=== PATIENT | female | born 1970 | race Caucasian/White ===

== ENCOUNTER 2022-01-28 12:38 | Emergency (ER) | payer OTHER ==
[2022-01-28 13:31] VITALS: RESP 18; TEMP 97.9
--- NOTE | 2022-01-28 14:02 | XR ---
EXAMINATION TYPE: XR finger RT DATE OF EXAM: 01/28/2022 COMPARISON: NONE HISTORY: Swelling TECHNIQUE: Three views are submitted. FINDINGS: The osseous structures are intact. The joint spaces are preserved and there is no acute fracture or dislocation. Diffuse soft tissue edema. Tiny density adjacent to the DIP joint along the ulnar surfac e. IMPRESSION: 1. Diffuse soft tissue edema. Correlate for cellulitis. No destructive changes to suggest osteomyelit is. 2. There is a tiny 1 to 2 mm density adjacent to the DIP joint along the palmar surface to small to c haracterize. Tiny foreign body not excluded.
[2022-01-28] MEDS ORDERED: LIDOCAINE 1% INJ 10MG/ML (30 ML VIAL-PF) SQ ONE (15:01)
[2022-01-28] MEDS ORDERED: SULFAMETHOX-TMP 800-160MG 1 EACH TAB PO STA (15:01)
--- NOTE | 2022-01-28 15:07 | ED ---
Skin/Abscess/FB HPI - General Chief complaint: Skin/Abscess/Foreign Body Stated complaint: finger infection Time Seen by Provider: 01/28/22 14:34 Source: patient, RN notes reviewed Mode of arrival: ambulatory Limitations: no limitations - History of Present Illness Initial comments: This is a 52-year-old female who presents to the emergency department for concerns of an infection in her right pinky finger. 3-4 days ago, she got a splinter in the finger and left it alone. She has since had an increase in pain and swelling. She is now starting to have drainage from this area and states that the pain is unbearable. Her tetanus status is up-to-date. Denies any fevers, chills, sore throat, cough, dyspnea, chest pain, palpitations, abdominal pain, nausea, vomiting, diarrhea, back pain, or headaches. MD complaint: abscess/boil - Related Data Home Medications Medication Instructions Recorded Confirmed Ascorbic Acid [Vitamin C] 500 mg PO DAILY 10/08/15 10/08/15 Cyanocobalamin [Vitamin B-12] 500 mcg PO DAILY 10/08/15 10/08/15 Ferrous Sulfate [Feosol] 325 mg PO DAILY 10/08/15 10/08/15 Previous Rx's Medication Instructions Recorded Cephalexin [Keflex] 500 mg PO Q6HR #28 cap 10/08/15 HYDROcodone/APAP 5-325MG [Memphis 1 tab PO Q6HR PRN 3 Days #12 tab 01/28/22 5-325] Sulfamethox-Tmp 800-160Mg [Bactrim 1 tab PO Q12HR 7 Days #14 tab 01/28/22 DS 800-160 mg] Allergies Allergy/AdvReac Type Severity Reaction Status Date / Time No Known Allergies Allergy Verified 01/28/22 13:31 Review of Systems ROS Statement: Those systems with pertinent positive or pertinent negative responses have been documented in the HPI. ROS Other: All systems not noted in ROS Statement are negative. Past Medical History Past Medical History: No Reported History History of Any Multi-Drug Resistant Organisms: None Reported Past Surgical History: No Surgical Hx Reported Past Psychological History: No Psychological Hx Reported Smoking Status: Current every day smoker Past Alcohol Use History: None Reported Past Drug Use History: None Reported General Exam Limitations: no limitations General appearance: alert, in no apparent distress Head exam: Present: atraumatic, normocephalic, normal inspection Respiratory exam: Present: normal lung sounds bilaterally. Absent: respiratory distress, wheezes, rales, rhonchi, stridor Cardiovascular Exam: Present: regular rate, normal rhythm, normal heart sounds. Absent: systolic murmur, diastolic murmur, rubs, gallop, clicks Extremities exam: Present: other (Diffuse soft tissue swelling over the right DIP joint on the pinky finger consistent with an abscess. Visible purulent material.) Neurological exam: Present: alert, oriented X3, CN II-XII intact Psychiatric exam: Present: normal affect, normal mood Course Vital Signs 01/28/22 01/28/22 13:29 17:30 Temperature 97.9 F Pulse Rate 68 72 Respiratory 18 18 Rate Blood Pressure 165/93 158/89 O2 Sat by Pulse 95 98 Oximetry Medical Decision Making - Medical Decision Making This is a 52-year-old female who presents to the emergency department for an abscess to the right pinky finger. X-ray obtained and on my interpretation there is diffuse soft tissue swelling. There was visible purulence underneath the epidermis. I&D was performed and a copious amount of purulent discharge was removed. Patient noted relief in symptoms almost immediately. The splinter she noted did come out of the finger underneath the fingernail. However, her pinky fingernail did start to fall off. A suture was used to tack this down while the new nail grows in. Advised that the suture will need to be removed in 2-3 we eks. Tetanus status is up-to-date. She was given a dose of Bactrim in the emergency department and a prescription for a seven-day course of Bactrim was provided. She was also given a short course of [place] due to the level of pain that she was in secondary to the I&D and removal and subsequent reattachment of the fingernail. Advised that she take this very sparingly when her pain is the most severe and to otherwise alternate with ibuprofen and Tylenol. Recommended alternating with warm and cool compresses as well to help with the swelling and any subsequent purulent material. Return precautions reviewed in depth, the patient is instructed to return to the emergency department with any new, worsening, or concerning symptoms. Patient verbalized understanding. This case was discussed in detail with the attending ED physician. Presentation, findings, and treatment plan discussed in detail as well. - Radiology Data Radiology results: report reviewed, image reviewed Disposition Clinical Impression: Abscess of right little finger Disposition: HOME SELF-CARE Instructions (If sedation given, give patient instructions): Abscess Incision and Drainage (ED), Abscess (ED) Additional Instructions: Return to the emergency department with any new, worsening, or concerning symptoms and in 2-3 weeks to have the stitch removed. Alternate with ibuprofen and Tylenol as needed for pain relief. Take the [place] sparingly when your pain is the most severe, and avoid driving or operating machinery when taking this because it can be sedating. You can also alternate with warm and cool compresses. Follow up with your primary care provider in 1-2 days. Prescriptions: Sulfamethox-Tmp 800-160Mg [Bactrim DS 800-160 mg] 1 tab PO Q12HR 7 Days #14 tab HYDROcodone/APAP 5-325MG [[place] 5-325] 1 tab PO Q6HR PRN 3 Days #12 tab PRN Reason: Pain Is patient prescribed a controlled substance at d/c from ED?: Yes When asked, does pt state using other controlled substances?: No If prescribed controlled substance>3 days was MAPS reviewed?: Prescribed <3 Days Referrals: None,Stated [Primary Care Provider] - 1-2 days
[2022-01-28] MEDS ORDERED: SULFAMETH-TMP DS STARTER PACK 2 TAB BTL PO STA (15:40)
[2022-01-28] MEDS ORDERED: ACET/COD 300 MG/30 MG STARTER PACK 6 TAB BTL PO STA (15:40)
[2022-01-28] MEDS ORDERED: HYDROcodone/APAP 5-325MG 1 EACH TAB PO STA (15:40)
[2022-01-28] MEDS ORDERED: IBUPROFEN 600 MG STARTER PACK 4 TAB BTL PO STA (15:40)
[2022-01-28] MEDS ORDERED: MORPHINE SULFATE 4 MG/ML SYRINGE IM STA (16:35)
[2022-01-28 17:32] VITALS: BP 158/89; PULSE 72
== END 2022-01-28 17:31 | disposition home or self-care (01) ==
LOC: EC 12:38
DX: L02.511 Cutaneous abscess of right hand (principal); F17.200 Nicotine dependence, unspecified, uncomplicated
CPT/HCPCS: 10060; 99283; 96372; 87070; 87205; 87075; 73140; J2270; J2001

== ENCOUNTER 2022-03-30 13:48 | Emergency (ER) | payer OTHER ==
[2022-03-30 14:00] VITALS: BP 165/105; PULSE 75; RESP 22; TEMP 97.9
--- NOTE | 2022-03-30 16:18 | ED ---
General Adult HPI - General Source: patient, RN notes reviewed Mode of arrival: ambulatory Limitations: no limitations <Sonia Amaral - Last Filed: 03/30/22 16:17> <Hari Castro - Last Filed: 03/30/22 23:03> - General Chief complaint: Dental/Oral Stated complaint: dental pain - History of Present Illness Initial comments: 52 year-old female presents to the emergency Department complaining of dental pain that started started on 03/27/2022. Denies trauma. Patient stable, vital signs stable. (Sonia Amaral) Patient is a 52-year-old female presenting with chief complaint of "I think I need antibiotics". Patient states that she has noted "swelling" to the left side of her face since Wednesday. Patient has been unable to move her mouth, completely close her eye, or raise her eyebrows since Wednesday. She has known dental caries on the right side of the face. She denies any pain. No fever or chills. No difficulty breathing or swallowing. No chest pain, palpitations, headache, vision or hearing changes. No recent injury or head trauma, blood thinners, loss of consciousness, seizure-like activity (Hari Castro) - Related Data Home Medications Medication Instructions Recorded Confirmed Ibuprofen [Motrin Ib] 800 mg PO Q8H PRN 03/30/22 03/30/22 Sertraline [Zoloft] 100 mg PO DAILY 03/30/22 03/30/22 Previous Rx's Medication Instructions Recorded Artificial Tears-Hypromellose 1 drops LEFT EYE TID #10 ml 03/30/22 [Artificial Tear Drops] Allergies Allergy/AdvReac Type Severity Reaction Status Date / Time No Known Allergies Allergy Verified 03/30/22 17:59 Review of Systems ROS Other: All systems not noted in ROS Statement are negative. <Sonia Amaral - Last Filed: 03/30/22 16:17> ROS Other: All systems not noted in ROS Statement are negative. <Hari Castro - Last Filed: 03/30/22 23:03> ROS Statement: Those systems with pertinent positive or pertinent negative responses have been documented in the HPI. Past Medical History Past Medical History: No Reported History History of Any Multi-Drug Resistant Organisms: None Reported Past Surgical History: No Surgical Hx Reported Past Psychological History: No Psychological Hx Reported Smoking Status: Current every day smoker Past Alcohol Use History: None Reported Past Drug Use History: Marijuana <Sonia Amaral - Last Filed: 03/30/22 16:17> General Exam Limitations: no limitations <Sonia Amaral - Last Filed: 03/30/22 16:17> Limitations: no limitations General appearance: alert, in no apparent distress Head exam: Present: atraumatic, normocephalic, normal inspection Eye exam: Present: normal appearance, PERRL, EOMI. Absent: scleral icterus, conjunctival injection, periorbital swelling Pupils: Present: normal accommodation Expanded Teeth exam: Present: dental caries, fractured tooth #. Absent: dental tenderness # Neck exam: Present: normal inspection, full ROM Respiratory exam: Present: normal lung sounds bilaterally. Absent: respiratory distress, wheezes, rales, rhonchi, stridor Cardiovascular Exam: Present: regular rate, normal rhythm, normal heart sounds. Absent: systolic murmur, diastolic murmur, rubs, gallop, clicks Expanded Patient oriented to: Present: person, place, time Speech: Present: fluid speech Cranial nerves: EOM's Intact: Normal, Facial Palsy without Forehead Movement: Abnormal Left (Patient is unable to move the left eyebrow) Sensory exam: Upper Extremity Light Touch: Normal, Lower Extremity Light Touch: Normal Motor strength exam: RUE: 5, LUE: 5, RLE: 5, LLE: 5 Eye Response: (4) open spontaneously Motor Response: (6) obeys commands Verbal Response: (5) oriented Kojo Total: 15 Psychiatric exam: Present: normal affect, normal mood Skin exam: Present: warm, dry, intact, normal color. Absent: rash <Hari Castro - Last Filed: 03/30/22 23:03> Course Vital Signs 03/30/22 13:58 Temperature 97.9 F Pulse Rate 75 Respiratory 22 Rate Blood Pressure 165/105 O2 Sat by Pulse 99 Oximetry EKG Findings - EKG Comments: EKG Findings:: Sinus bradycardia. Ventricular rate 58. KS interval 169. QRS 110. QT 454. QTc 450. No ST deviation. <Hari Castro - Last Filed: 03/30/22 23:03> Medical Decision Making - Lab Data Result diagrams: 03/30/22 17:18 03/30/22 17:18 <Hari Castro - Last Filed: 03/30/22 23:03> - Medical Decision Making Was pt. sent in by a medical professional or institution (NOELLE Iniguez, BUSINESS APPLICATIONS DEVELOPER, urgent care, hospital, or long-term...) When possible be specific @ -No Did you speak to anyone other than the patient for history (EMS, parent, family, police, friend...)? What history was obtained from this source @ -No Did you review nursing and triage notes (agree or disagree)? Why? @ -I reviewed and agree with nursing and triage notes Were old charts reviewed (outside hosp., previous admission, EMS record, old EKG, old radiological studies, urgent care reports/EKG's, long-term records)? Report findings @ -No old charts were reviewed Differential Diagnosis (chest pain, altered mental status, abdominal pain women, abdominal pain men, vaginal bleeding, weakness, fever, dyspnea, syncope, headache, dizziness, GI bleed, back pain, seizure, CVA, palpatations, mental health)? @ -Differential includes Pedroza's palsy, stroke, this is not an all inclusive list EKG interpreted by me (3pts min.). @ -As above X-rays interpreted by me (1pt min.). @ -None done CT interpreted by me (1pt min.). @ -No, Radiologist report is reviewed. No acute intracranial process. U/S interpreted by me (1pt. min.). @ -None done What testing was considered but not performed or refused? (CT, X-rays, U/S, labs)? Why? @ -None What meds were considered but not given or refused? Why? @ -None Did you discuss the management of the patient with other professionals (professionals i.e. NOELLE Iniguez, BUSINESS APPLICATIONS DEVELOPER, lab, RT, psych nurse, bilingual social worker, director of guidance in public schools, teacher, seal delivery vehicle officer, top case assembler)? Give summary @ -No Was smoking cessation discussed for >3mins.? @ -No Was critical care preformed (if so, how long)? @ -No Were there social determinants of health that impacted care today? How? (Homelessness, low income, unemployed, alcoholism, drug addiction, transportation, low edu. Level, literacy, decrease access to med. care, senior living, rehab)? @ -No Was there de-escalation of care discussed even if they declined (Discuss DNR or withdrawal of care, Hospice)? DNR status @ -No What co-morbidities impacted this encounter? (DM, HTN, Smoking, COPD, CAD, Cancer, CVA, ARF, Chemo, Hep., AIDS, mental health diagnosis, sleep apnea, morbid obesity)? @ -None Was patient admitted / discharged? Hospital course, mention meds given and route, prescriptions, significant lab abnormalities, going to OR and other pertinent info. @ -Patient is a 52-year-old female presenting with chief complaint of "swelling" to the left side of the face. Symptoms have been ongoing since Wednesday. On physical examination there is no pain or swelling to the left side of the face. It is noted that patient had difficulty moving that side of the face. She is unable to lift her eyebrow her smile appropriately. She has difficulty fully closing the eye. Examination of the mouth shows fractured teeth, there is no gingival enlargement or brawny induration. No signs of abscess. CT of the brain shows no acute intracranial process. Lab work is essentially unremarkable. EKG shows sinus bradycardia rate of 58. Symptoms likely due to Pedroza's palsy. Educated patient on Pedroza's palsy. Provided with artificial tears and tape for eye if needed. Instructed to follow-up with PCP, provided suggestions. Follow-up with PCP. Report back to ER with any new or worsening symptoms. Discussed return parameters and answered all questions. Patient conveyed verbal understanding and agreed to the plan. I discussed this case in detail with my attending Dr. Parrish Undiagnosed new problem with uncertain prognosis? @ -No Drug Therapy requiring intensive monitoring for toxicity (Heparin, Nitro, Insulin, Cardizem)? @ -No Were any procedures done? @ -No Diagnosis/symptom? @ -Pedroza's palsy Acute, or Chronic, or Acute on Chronic? @ -Acute Uncomplicated (without systemic symptoms) or Complicated (systemic symptoms)? @ -Uncomplicated Side effects of treatment? @ -No Exacerbation, Progression, or Severe Exacerbation? @ -No Poses a threat to life or bodily function? How? (Chest pain, [place], [place], pneumonia, PE, COPD, DKA, ARF, appy, cholecystitis, CVA, Diverticulitis, Homicidal, Suicidal, threat to staff... and all critical care pts) @ -No (Hari Castro) - Lab Data Lab Results 03/30/22 03/30/22 03/30/22 Range/Units 17:18 17:18 17:18 WBC 10.1 (3.8-10.6) k/uL RBC 4.77 (3.80-5.40) m/uL Hgb 15.0 (11.4-16.0) gm/dL Hct 43.3 (34.0-46.0) % MCV 90.8 (80.0-100.0) fL MCH 31.4 (25.0-35.0) pg MCHC 34.6 (31.0-37.0) g/dL RDW 12.4 (11.5-15.5) % Plt Count 225 (150-450) k/uL MPV 8.1 Neutrophils % 63 % Lymphocytes % 29 % Monocytes % 4 % Eosinophils % 2 % Basophils % 0 % Neutrophils # 6.3 (1.3-7.7) k/uL Lymphocytes # 2.9 (1.0-4.8) k/uL Monocytes # 0.4 (0-1.0) k/uL Eosinophils # 0.2 (0-0.7) k/uL Basophils # 0.0 (0-0.2) k/uL PT 10.0 (9.0-12.0) sec INR 0.9 (<1.2) APTT 26.2 (22.0-30.0) sec Sodium 137 (137-145) mmol/L Potassium 4.0 (3.5-5.1) mmol/L Chloride 101 (98-107) mmol/L Carbon Dioxide 28 (22-30) mmol/L Anion Gap 8 mmol/L BUN 11 (7-17) mg/dL Creatinine 0.75 (0.52-1.04) mg/dL Est GFR (CKD-EPI)AfAm >90 (>60 ml/min/1.73 sqM) Est GFR (CKD-EPI)NonAf >90 (>60 ml/min/1.73 sqM) Glucose 92 (74-99) mg/dL Calcium 8.7 (8.4-10.2) mg/dL Total Bilirubin 0.5 (0.2-1.3) mg/dL AST 22 (14-36) U/L ALT 23 (4-34) U/L Alkaline Phosphatase 100 (38-126) U/L Troponin I (0.000-0.034) ng/mL Total Protein 7.2 (6.3-8.2) g/dL Albumin 4.5 (3.5-5.0) g/dL 03/30/22 Range/Units 17:18 WBC (3.8-10.6) k/uL RBC (3.80-5.40) m/uL Hgb (11.4-16.0) gm/dL Hct (34.0-46.0) % MCV (80.0-100.0) fL MCH (25.0-35.0) pg MCHC (31.0-37.0) g/dL RDW (11.5-15.5) % Plt Count (150-450) k/uL MPV Neutrophils % % Lymphocytes % % Monocytes % % Eosinophils % % Basophils % % Neutrophils # (1.3-7.7) k/uL Lymphocytes # (1.0-4.8) k/uL Monocytes # (0-1.0) k/uL Eosinophils # (0-0.7) k/uL Basophils # (0-0.2) k/uL PT (9.0-12.0) sec INR (<1.2) APTT (22.0-30.0) sec Sodium (137-145) mmol/L Potassium (3.5-5.1) mmol/L Chloride (98-107) mmol/L Carbon Dioxide (22-30) mmol/L Anion Gap mmol/L BUN (7-17) mg/dL Creatinine (0.52-1.04) mg/dL Est GFR (CKD-EPI)AfAm (>60 ml/min/1.73 sqM) Est GFR (CKD-EPI)NonAf (>60 ml/min/1.73 sqM) Glucose (74-99) mg/dL Calcium (8.4-10.2) mg/dL Total Bilirubin (0.2-1.3) mg/dL AST (14-36) U/L ALT (4-34) U/L Alkaline Phosphatase (38-126) U/L Troponin I <0.012 (0.000-0.034) ng/mL Total Protein (6.3-8.2) g/dL Albumin (3.5-5.0) g/dL Disposition <Sonia Amaral - Last Filed: 03/30/22 16:17> Is patient prescribed a controlled substance at d/c from ED?: No Time of Disposition: 18:46 <Hari Castro - Last Filed: 03/30/22 23:03> Clinical Impression: Pedroza's palsy Disposition: HOME SELF-CARE Condition: Good Instructions (If sedation given, give patient instructions): Pedroza Palsy (ED) Additional Instructions: Follow-up with PCP and dentist. If you need a new PCP some suggestions have been provided for you. Report back to ER with any new or worsening symptoms. Use artificial tears as needed. Tape the eye shut when sleeping as needed. Please follow up with the [facility] dental [facility]. [facility] [place] [address]. Phone number for new patients or [phone] for existing patients. Prescriptions: Artificial Tears-Hypromellose [Artificial Tear Drops] 1 drops LEFT EYE TID #10 ml Referrals: None,Stated [Primary Care Provider] - 1-2 days [facility] [NON-STAFF] - 1-2 days
--- NOTE | 2022-03-30 17:26 | CT ---
EXAMINATION TYPE: CT brain wo con CT DLP: 1261.4 mGycm, Automated exposure control for dose reduction was used. DATE OF EXAM: 03/30/2022 4:59 PM COMPARISON: None CLINICAL INDICATION:Female, 52 years old with history of Neuro deficit, acute, facial droop, facial d [place] TECHNIQUE: Brain: Axial CT images of the brain were obtained with coronal and sagittal reformats created and rev iewed. Contrast used: None. Oral contrast used: None. FINDINGS: Brain: Extra-axial spaces: No abnormal extra-axial fluid collections. Ventricular system: Within normal limits Cerebral parenchyma: No acute intraparenchymal hemorrhage or mass effect. The lopez-white junction is well differentiated. Cerebellum: Unremarkable. Mass effect: No evidence of midline shift. Intracranial vasculature: unremarkable Soft tissues: Normal. Calvarium/osseous structures: No depressed skull fracture. Paranasal sinuses and mastoid air cells: Mild scattered paranasal sinus disease. Visualized orbits: Orbital contents are intact. IMPRESSION: No acute intracranial process.
[2022-03-30 17:29] LABS: Basophils % (A) 0 %; Eosinophils # (A) 0.2 k/uL (0-0.7); Eosinophils % (A) 2 %; HCT 43.3 % (34.0-46.0); Lymphocytes # (A) 2.9 k/uL (1.0-4.8); Lymphocytes % (A) 29 %; MCH 31.4 pg (25.0-35.0); MCHC 34.6 g/dL (31.0-37.0); MCV 90.8 fL (80.0-100.0); Mean Platelet Volume 8.1; Monocytes # (A) 0.4 k/uL (0-1.0); Monocytes % (A) 4 %; Neutrophils # (A) 6.3 k/uL (1.3-7.7); Neutrophils % (A) 63 %; Platelet Count 225 k/uL (150-450); RBC 4.77 m/uL (3.80-5.40); RDW 12.4 % (11.5-15.5); WBC 10.1 k/uL (3.8-10.6)
[2022-03-30 17:43] LABS: ALT 23 U/L (4-34); AST 22 U/L (14-36); African American GFR (CKD) >90 (>60 ml/min/1.73 sqM); Albumin 4.5 g/dL (3.5-5.0); Alkaline Phosphatase 100 U/L (38-126); Anion Gap 8 mmol/L; Blood Urea Nitrogen 11 mg/dL (7-17); Calcium 8.7 mg/dL (8.4-10.2); Carbon Dioxide 28 mmol/L (22-30); Chloride 101 mmol/L (98-107); Glucose 92 mg/dL (74-99); Non-African American GFR(CKD) >90 (>60 ml/min/1.73 sqM); Sodium 137 mmol/L (137-145); Total Bilirubin 0.5 mg/dL (0.2-1.3); Total Protein 7.2 g/dL (6.3-8.2)
[2022-03-30 17:50] LABS: INR 0.9 (<1.2); Partial Thromboplastin Time 26.2 sec (22.0-30.0)
== END 2022-03-30 18:58 | disposition home or self-care (01) ==
LOC: EC 13:48
DX: G51.0 Bell's palsy (principal); F17.200 Nicotine dependence, unspecified, uncomplicated; F12.90 Cannabis use, unspecified, uncomplicated
CPT/HCPCS: 36415; 70450; 80053; 84484; 85025; 85610; 85730; 93005; 99284